=== PATIENT | male | born 1985 | race Caucasian/White ===

== ENCOUNTER 2018-06-30 03:13 | Emergency (ER) | payer MEDICAID, SELFPAY ==
[2018-06-30] VITALS (17 sets, daily range): BP systolic 106–143; BP diastolic 47–92; PULSE 63–114; RESP 14–22; TEMP 36.4; O2SAT 96–100; BMI 22.1
--- NOTE | 2018-06-30 03:26 | CT_ITS ---
HISTORY: ALTERED MENTAL STSTAUS AND CONFUSION EXAMINATION: CT Head or Brain W/O Contrast TECHNIQUE: Multiple axial images were obtained of the brain without intravenous contrast. A radiation dose optimization technique was used for this scan. IV Contrast dosage and agent: None. COMPARISON: None FINDINGS: Normal ventricles and normal cole-white matter differentiation. No intracranial mass, hemorrhage, or acute intracranial disease. Posterior fossa structures are unremarkable. No suspicious extra-axial fluid collection. Subtotal opacification of the left maxillary sinus and mild mucosal thickening of the right maxillary sinus. Recent or subacute fracture of the right maxillary frontal process base with overlying mild soft tissue swelling at this locale. As visualized, mastoids appear clear. CT/Brain/Head without Contrast IMPRESSION: 1. Normal CT brain without contrast. 2. Recent or subacute fracture of the frontal process of the right maxilla 3. Bilateral maxillary sinusitis, worse on the left. Individualized dose optimization techniques were used for this CT. at 0437 Reported and signed by: Paul Whitten MD Electronically Signed: Paul Whitten, at 4:36 EDT Tel , Service support ,
--- NOTE | 2018-06-30 03:27 | EKG12_ITS ---
Test Reason : Blood Pressure : / mmHG Vent. Rate : 089 BPM Atrial Rate : 089 BPM P-R Int : 166 ms QRS Dur : 084 ms QT Int : 388 ms P-R-T Axes : 075 082 063 degrees QTc Int : 472 ms Normal sinus rhythm Normal ECG Confirmed by BERNARDINO CRANDALL, CAESAR ([id number]), editorial director ANAYA MARTINES ([id number]) on 07/02/2018 11:02:24 AM Referred By: BB Confirmed By:CAESAR LEBRON MD
--- NOTE | 2018-06-30 03:27 | RAD_ITS ---
HISTORY: confusion pt incoherentunknown hx EXAM:XR Chest 2 Views COMPARISON: None FINDINGS: EKG leads in place and tubing artifact at the lower right chest. Normal heart size. Bilateral hyperinflation. No vascular congestion, pleural effusion, or acute pulmonary infiltration. Upper thoracic levoscoliosis. No fracture seen. RAD/Chest PA and Lateral IMPRESSION: 1. No acute cardiopulmonary disease. 2. Hyperinflation. Scoliosis. at 0374 Reported and signed by: Paul Whitten MD Electronically Signed: Paul Whitten, at 4:52 EDT Tel , Service support ,
--- NOTE | 2018-06-30 03:30 | ED.RN ---
PT BROUGHT IN TO ER BY TWO OTHER MALES. ONE OF THE MALES INFORMED THE ER STAFF THAT THE PT WAS CONFUSED AND MISSING A PERIOD OF TIME. THE PT REFUSED TO COME INTO THE ER AND TURNED AROUND TO WALK AWAY. THE TWO FRIENDS WERE STANDING ON THE ER RAMP ARGUING WITH THE PT ATTEMPTING TO GET HIM TO COME INTO THE HOSPITAL. DEONTE CASILLAS CONTACTED. PT REFUSING TO ANSWER QUESTIONS FOR THIS NURSE OR DEONTE CASILLAS. FRIENDS GAVE THE POLICE OFFICERS THE PT SOCIAL SECURITY CARD. PT BEGAN TO WALK AWAY AGAIN. THE PT WALKED TO THE ER ENTRANCE, SAT HIMSELF IN A WHEELCHAIR AND STARTED TO WHEEL HIMSELF THROUGH THE DOORS. PT CONVINCED TO ALLOW STAFF TO TAKE HIM TO A PATIENT ROOM AND HAVE THE ER DOCTOR SPEAK WITH HIM. PT NOT ANSWERING QUESTIONS. PT REPEATING PHRASES LIKE NORMAL AND 975. PT COOPERATIVE WITH BLOOD DRAWS AND CARE BUT NOT ANSWERING QUESTIONS.
--- NOTE | 2018-06-30 03:35 | ED.DCSUM_ITS ---
History of Present Illness Chief Complaint: Confusion Informant: Patient Limited by: - - altered mental status Onset: - - unk Narrative: Limited history available. Friends dropped the patient off and then left, telling triage that he was confused, not making any sense, and something about him not being welcome back in their home. They were not available for discussion or questioning, the patient can provide no useful information. Past Medical History Primary Care Physician: NOT,DEFINED [NON-STAFF] - Past Medical History: - - unknown Smoking Status: Current every day smoker Drugs: - - unknown - Family History Maternal Family History: Reports: - - He states that he has a family history of heart disease but he would not state whether it is in his mother's side or his father's side. He states that he does not care about them. He reported that his sister has mental disease. Paternal Family History: Reports: - - He states that he has a family history of heart disease but he would not state whether it is in his mother's side or his father's side. He states that he does not care about them. Review of Systems ROS: Unable to Obtain Physical Exam Vital Signs/Narrative: Vital Signs Temp Pulse Resp BP Pulse Ox 06/30/18 03:13 97.5 F L 80 22 H 137/87 H 100 Inital Vital Signs reviewed: Yes General: Well nourished, Well developed, Unkempt, No Acute Distress Head: Normocephalic, Trauma - old contusion right lateral face, lateral to orbit Eyes: Perrl, EOMI. Negative for: Scleral icterus ENT: Moist mucous membranes, No rhinorrhea, TM's clear - w/o HT. Negative for: Nasal congestion, Sinus tenderness Neck: Supple - FROM, no meningismus, negative brudzinski and kernig signs, Nontender, No lymphadenopathy, No JVD, - - no thyromegaly/palpable nodule Cardiovascular: Regular rate, Regular rhythm, No murmurs. Negative for: Tachycardia Respiratory: No distress, CTA bilaterally, Chest nontender Abdomen: Soft, Nontender, Nondistended, Normal bowel sounds Back: Nontender, Normal Inspection Extremities: Nontender, No edema Skin: Normal color, No rash, No Trauma, - - 2 ulcerations, each approx 1 cm and at medial aspect of each/both ankles. on left, has fresh granulation tissue w/ gauze/tape over it. right is scabbed. both nontender. no cords/induration/abscess/lymphangitis. Neurological: Alert, Cranial nerves II-XII grossly intact, Normal Strength, Normal Sensation, Normal DTR - w/ toes downgoing, Disoriented - Either encephalopathic or dense expressive aphasia. He follows simple commands, such as opening his mouth or closing/opening his eyes, however when answering questions, he gives 1 word answers that are completely inappropriate. For instance when attempting to perform review of systems, initially every answer was simply the word coffee. I asked him if he hurt anywhere. For the next 6 questions, his answer was simply the word anywhere. Psychological: - - flat affect. cooperative and following commands. Diagnostic/Tx/Re-eval Impressions Brain CT 06/30/18 03:26 IMPRESSION: 1. Normal CT brain without contrast. 2. Recent or subacute fracture of the frontal process of the right maxilla 3. Bilateral maxillary sinusitis, worse on the left. Individualized dose optimization techniques were used for this CT. at 0437 Reported and signed by: Paul Whitten MD Electronically Signed: Paul Whitten, at 4:36 EDT Tel , Service support , Chest X-Ray 06/30/18 03:27 IMPRESSION: 1. No acute cardiopulmonary disease. 2. Hyperinflation. Scoliosis. at 0454 Reported and signed by: Paul Whitten MD Electronically Signed: Paul Whitten, at 4:52 EDT Tel , Service support , 06/30/18 03:26 Brain/Head without Contrast [CT] Stat 06/30/18 03:27 Chest PA and Lateral [RAD] Stat Laboratory Results 06/30/18 06/30/18 06/30/18 03:52 03:52 03:52 WBC 9.4 RBC 4.43 L Hgb 13.8 Hct 39.7 L MCV 89.6 MCH 31.2 MCHC 34.8 RDW 12.6 RDW Differential 41.4 Plt Count 244 MPV 9.9 Immature Gran % (Auto) 0.200 Neut % (Auto) 75.1 H Lymph % (Auto) 15.4 L [place] % (Auto) 8.6 Eos % (Auto) 0.5 Baso % (Auto) 0.2 Absolute Neuts (auto) 7.1 Absolute Lymphs (auto) 1.45 Total Counted Not Reportable Sodium 137 Potassium 3.0 L Chloride 97 L Carbon Dioxide 32.0 Anion Gap 8 BUN 19 H Creatinine 0.98 Estim Creat Clear Calc 105.85 Est GFR (MDRD) Af Amer 115 Est GFR (MDRD) Non-Af 95 BUN/Creatinine Ratio 19.4 Glucose 89 Calcium 9.5 Total Bilirubin 1.30 H AST 19 ALT 28 Alkaline Phosphatase 81 Troponin I < 0.015 Total Protein 8.3 H Albumin 4.7 Globulin 3.6 Albumin/Globulin Ratio 1.3 TSH 0.77 Urine Color Urine Clarity Urine pH Ur Specific [place] Urine Protein Urine Glucose (UA) Urine Ketones Urine Occult Blood Urine Nitrite Urine Bilirubin Urine Urobilinogen Ur Leukocyte Esterase Urine RBC Urine WBC Ur Squamous Epith Cells Urine Bacteria Urine Mucus Urine Opiates Screen Urine Methadone Screen Ur Barbiturates Screen Ur Phencyclidine Scrn Ur Amphetamines Screen U Methamphetamin-MDMA U Benzodiazepines Scrn Urine Cocaine Screen U Cannabinoids Screen Ur Drug Screen Comment Ethyl Alcohol < 3.0 06/30/18 06/30/18 04:40 04:42 WBC RBC Hgb Hct MCV MCH MCHC RDW RDW Differential Plt Count MPV Immature Gran % (Auto) Neut % (Auto) Lymph % (Auto) [place] % (Auto) Eos % (Auto) Baso % (Auto) Absolute Neuts (auto) Absolute Lymphs (auto) Total Counted Sodium Potassium Chloride Carbon Dioxide Anion Gap BUN Creatinine Estim Creat Clear Calc Est GFR (MDRD) Af Amer Est GFR (MDRD) Non-Af BUN/Creatinine Ratio Glucose Calcium Total Bilirubin AST ALT Alkaline Phosphatase Troponin I Total Protein Albumin Globulin Albumin/Globulin Ratio TSH Urine Color Yellow Urine Clarity Sl. Cloudy Urine pH 6.5 Ur Specific [place] 1.015 Urine Protein 15 H Urine Glucose (UA) Normal Urine Ketones 5 H Urine Occult Blood Negative Urine Nitrite Negative Urine Bilirubin Negative Urine Urobilinogen Normal Ur Leukocyte Esterase Negative Urine RBC 0 SEEN Urine WBC 0 SEEN Ur Squamous Epith Cells 0 SEEN Urine Bacteria 0 SEEN Urine Mucus 0 SEEN Urine Opiates Screen NEGATIVE Urine Methadone Screen NEGATIVE Ur Barbiturates Screen NEGATIVE Ur Phencyclidine Scrn NEGATIVE Ur Amphetamines Screen POSITIVE H U Methamphetamin-MDMA NEGATIVE U Benzodiazepines Scrn NEGATIVE Urine Cocaine Screen NEGATIVE U Cannabinoids Screen POSITIVE H Ur Drug Screen Comment Ethyl Alcohol - Rhythm Strip Rhythm Strip: Sinus Rhythm Rate: 90 Ectopy: None - EKG Initial EKG Interpretation: Sinus Rhythm, No Acute Injury Pattern - nml intervals and axis - Medical Decision Making Imaging of the chest is unremarkable. Head CT shows normal brain but he appears to have a fracture of the frontal process of the right maxillary bone, age undetermined. He does have what appears to be a contusion on his right lateral face, does not appear to be acute as in tonight. But it certainly could be subacute and very recent. Metabolic/laboratory workup shows mild dehydration, which is probably giving him a mild contraction alkalosis, hypokalemia at 3.0 for unknown reason, possibly due to shift from this alkalosis. ABG shows 7.43/42/93/28. He has been calm and not somnolent/lethargic; just extremely confused. During his observation here over the past 3 hours, his mental status has slowly showed some improvement. He asked for a sandwich. He asked for the thing to pee in so he took the urinal offered by the nurse and urinated in it. His toxicology was the last test to return, it shows amphetamines and marijuana. I doubt these explain his mental status abnormalities; the typical methamphetamine overdose does not present like this. He unlikely has traumatic brain injury, even if he suffered trauma recently that resulted in his minor maxillary bone fracture. The facial contusion is more than 24 hrs old. He still does not answer any question I ask appropriately. I do not think he needs an LP at this time. His neck is very supple, his vital signs are normal and he is afebrile. The rest of his medical workup is unremarkable. However I am not comfortable discharging him. He was given IV fluids and potassium replacement. I discussed with hospitalist Dr. Álvarez, who evaluated the patient and had a more productive exam. Patient told him he is schizophrenic, has PTSD, and has not been on medication for a long time, and he is examining like he is psychotic. He does not think medical admission would be beneficial for him, given the workup already performed. Will discuss with crisis for further evaluation and continue to replace his potassium. Medically cleared at this time. Please see medicine consult as well. Short time later, the patient became very agitated and paranoid, suddenly looking at the wall and explaining that he cannot tell where the BP is coming from, as it was from the monitor on the wall. He was throwing things, he wanted out of the room. It became very clear that he is acutely psychotic. He was treated with Geodon for safety reasons, crisis is about to see him. ED Disposition - Plan for ED Patient: Disposition: Psychiatric Hospital or Unit Diagnosis: Acute psychosis Referrals: NOT,DEFINED [NON-STAFF] -
[2018-06-30 04:01] LABS: Bacteria 0 SEEN /hpf (None Seen); Mucous, Urine 0 SEEN /hpf (<or=2+); Red Blood Cells-Urine 0 SEEN /hpf (0-5); Squamous Epithelial Cells - UA 0 SEEN /hpf (0-5); White Blood Cells 0 SEEN /hpf (0-5)
[2018-06-30 04:04] LABS: Absolute Lymphocyte Count 1.45 X10^3/ul (0.83-4.51); Absolute Neutrophil Count 7.1 X10^3/uL (2.0-7.7); Basophil# 0.02 X10^3/uL; Basophil% 0.2 % (0-1); Eosinophil# 0.05 X10^3/uL; Eosinophils% 0.5 % (0-5); Hematocrit 39.7 % (40-54); Hemoglobin 13.8 g/dl (13.0-16.5); Lymphocyte # 1.45 X10^3/ul (4.0); Lymphocyte % 15.4 % (19-41); Mean Corp Hgb Conc 34.8 g/gl (32-36); Mean Corpuscular Hgb 31.2 pg (27.0-32.0); Mean Corpuscular Volume 89.6 fL (80-94); Mean Platelet Vol. 9.9 fl (6.2-12.0); Monocyte# 0.81 X10^3/uL; Monocyte% 8.6 % (0-10); Neutrophil # 7.09 X10^3/uL (2.7-7.7); Neutrophil % 75.1 % (47-70); Platelet Count 244 K/mm3 (150-450); RBC Distribution Width CV 12.6 % (11.6-14.6); RBC Distribution Width SD 41.4 fl (35.1-43.9); Red Blood Count 4.43 M/mm3 (4.6-6.2); White Blood Count 9.4 K/mm3 (4.4-11.0)
[2018-06-30 04:05] LABS: POSITIVE COUNT NO; POSITIVE DIFFERENTIAL NO; POSITIVE MORPHOLOGY NO
[2018-06-30] MEDS: 0.9% Normal Saline 1,000 ML 150 ML IV (04:06)
[2018-06-30 04:26] LABS: ALB/GLOB Ratio 1.3 RATIO (0.9-2.4); AST(SGOT) 19 U/L (15-37); Alanine Aminotransfer ALT/SGPT 28 U/L (16-61); Albumin, Serum 4.7 g/dL (3.2-5.0); Alkaline Phosphatase 81 U/L (45-117); Anion Gap 8 (5-15); BUN 19 mg/dL (7-18); BUN/Creat Ratio 19.4 RATIO (10-20); Calcium,Total 9.5 mg/dL (8.5-10.1); Chloride 97 mmol/L (98-107); Creatinine, Serum 0.98 mg/dL (0.70-1.30); EST Glomerular Filtration Rate 95 mL/min (>60); Est Glom Filt Rate - Afr Amer 115 mL/min (>60); Estimated Creatinine Clearance 105.85 ml/min; Globulin 3.6 g/dL (2.2-4.2); Glucose 89 mg/dL (74-106); Protein, Total 8.3 g/dL (6.4-8.2); Sodium Level 137 mmol/L (136-145); Thyroid Stim Hormone (TSH) 0.77 uIU/mL (0.358-3.74)
[2018-06-30 04:31] LABS: Alcohol, Blood (Medical)-Serum < 3.0 mg/dL
--- NOTE | 2018-06-30 04:45 | ED.RN ---
THIS NURSE INFORMED PT A URINE SAMPLE IS NEEDED. PT STATES CAN I HAVE A SANDWICH AND SOMETHING TO DRINK. PT INFORMED ONCE WE HAVE A URINE SAMPLE WE CAN CHECK THE REST OF HIS RESULTS AND SEE ABOUT SOMETHING TO EAT AND DRINK.
[2018-06-30 04:56] LABS: Color, Urine Yellow (Yellow); Glucose, Dipstick Normal (Normal); Ketone-Dipstick 5 mg/dl (Negative); Leukocyte Esterase-Dipstick Negative /ul (Negative); Nitrite-Dipstick Negative (Negative); Occult Blood-Urine Negative /ul (Negative); Protein-Dipstick 15 mg/dl (Negative); Specific Gravity, Urine 1.015 (1.002-1.030); Urine Bilirubin Dipstick Negative (Negative); Urine Clarity Sl. Cloudy (Clear); Urine Urobilinogen Normal (Normal); Urine pH 6.5 (5.0 - 8.0)
[2018-06-30] MEDS: 0.9% Normal Saline 1,000 ML 999 ML IV (05:21)
[2018-06-30 05:56] LABS: Amphetamine Urine VISTA POSITIVE (<1000 ng/mL); Barbiturate Urine VISTA NEGATIVE (< 200 ng/mL); Benzodiazepine Urine VISTA NEGATIVE (< 200 ng/mL); Cocaine Urine VISTA NEGATIVE (< 300 ng/mL); Ecstacy Urine VISTA NEGATIVE (< 500 ng/mL); Methadone Urine VISTA NEGATIVE (< 300 ng/mL); PCP Urine VISTA NEGATIVE (< 25 ng/mL); THC Urine VISTA POSITIVE (< 50 ng/mL); Vista UDS pH Range 5
[2018-06-30 07:00] LABS: Allen Test POS; Base Excess 3 mmol/L (-2 to +2); Bicarbonate 27.8 mmol/L (22-26); Blood Gas Specimen Type ART; O2 Delivery Device Room Air; PO2 93 mmHG (75-100); SITE L Radial; SO2 97 % (95-99); Total Carbon Dioxide 29 mmol/L; pCO2 41.8 mmHg (35-45); pH 7.43 (7.35-7.45)
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
--- NOTE | 2018-06-30 07:40 | ED.RN ---
Patient pulled out his own IV. Throwing things in the room, not making sense verbally. Flight of ideas. random partial comments. Spastic movements and twitching. Talking about another female in the room that was not there. Security at bedside, Dr. Nickerson notified and going to put in order for Desi
[2018-06-30] MEDS: Ziprasidone IM 20 MG/ML VIAL IM ×2 (07:44→13:27)
[2018-06-30] MEDS: LORazepam 1 MG Tablet PO (12:46)
--- NOTE | 2018-06-30 13:52 | ED.RN ---
pt hearing auditory hallucinations. on ambulance ramp. feeling like he needs to leave to get somewhere quiet. Able to talk patinet calmly back to room.
--- NOTE | 2018-06-30 15:39 | ED.RN ---
[facility] BACK WITH QUESTIONS, REPORTS THEY ARE GONG TO SPEAK WITH THE CLINICIAN ABOUT THE PATIENT AND CALL BACK.
--- NOTE | 2018-06-30 16:06 | ED.RN ---
pt with pressure sore on right heel. pt had pad from home protecting heel in his shoe.
== END 2018-06-30 20:06 ==
PROVIDERS: Emergency Medicine; Emergency Provider Emergency Medicine
DX: F23 Brief psychotic disorder (principal); E86.0 Dehydration; E87.6 Hypokalemia; F20.9 Schizophrenia, unspecified; F32.9 Major depressive disorder, single episode, unspecified; F41.9 Anxiety disorder, unspecified; F43.10 Post-traumatic stress disorder, unspecified; F19.10 Other psychoactive substance abuse, uncomplicated; R47.01 Aphasia; S02.40CA Maxillary fracture, right side, initial encounter for closed fracture; X58.XXXA Exposure to other specified factors, initial encounter; Y93.9 Activity, unspecified; Y92.9 Unspecified place or not applicable; Y99.9 Unspecified external cause status; L97.329 Non-pressure chronic ulcer of left ankle with unspecified severity; L97.319 Non-pressure chronic ulcer of right ankle with unspecified severity; Z59.0 Homelessness; F17.210 Nicotine dependence, cigarettes, uncomplicated
CPT/HCPCS: 36600; 70450; 71046; 80053; 80307; 80320; 81001; 82803; 84443; 84484; 85025; 93005; 96360; 96361; 96372; 99284; J7030; A4216; G0480; J3486